=== PATIENT | male | born 1970 ===

== ENCOUNTER 2022-10-08 06:16 | Day surgery (SDC) | payer OTHER ==
[2022-10-04 15:30] VITALS: BMI 33.7
[2022-10-08] MEDS ORDERED: PROPOFOL 40 ML ONE (08:00)
== END 2022-10-08 09:16 | disposition home or self-care (01) ==
LOC: CSHSDC 06:16
PROVIDERS: ATTEND Internal Medicine Gastroenterology
PROC: 0DBL8ZZ Excision of Transverse Colon, Via Natural or Artificial Opening Endoscopic (ICD-10-PCS; principal; 2022-10-08)
PROC: 0DBM8ZZ Excision of Descending Colon, Via Natural or Artificial Opening Endoscopic (ICD-10-PCS; principal; 2022-10-08)
DX: K92.2 Gastrointestinal hemorrhage, unspecified (principal); D12.3 Benign neoplasm of transverse colon; D12.2 Benign neoplasm of ascending colon; E03.9 Hypothyroidism, unspecified; K64.9 Unspecified hemorrhoids; E66.9 Obesity, unspecified; Z68.34 Body mass index [BMI] 34.0-34.9, adult; Z79.899 Other long term (current) drug therapy
CPT/HCPCS: 88305; J2704